=== PATIENT | female | born 1995 | race Caucasian/White ===

== ENCOUNTER 2020-08-28 14:59 | Emergency (ER) | payer BC ==
[~2020-08-28] VITALS: Ht 170.2 cm; Wt 59.0 kg
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
--- NOTE | 2020-08-28 15:37 | NUR ---
The patient complained of nausea and vomiting for 2 days.
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
[2020-08-28 16:25] VITALS: BP 120/72
== END 2020-08-28 16:25 | disposition home or self-care (01) ==
LOC: ER 15:05
DX: S06.0X0A Concussion without loss of consciousness, initial encounter (principal); S05.11XA Contusion of eyeball and orbital tissues, right eye, initial encounter; W18.09XA Striking against other object with subsequent fall, initial encounter; Y93.89 Activity, other specified; Y92.89 Other specified places as the place of occurrence of the external cause; Y99.8 Other external cause status